=== PATIENT | male | born 1950 | race Caucasian/White ===

== ENCOUNTER 2020-03-01 06:45 | Inpatient (IN) | payer MEDICARE, SELFPAY ==
[2020-03-01] VITALS (14 sets, daily range): BP systolic 103–132; BP diastolic 62–85; PULSE 74–120; RESP 14–38; TEMP 36.4–37.3; O2SAT 89–97; BMI 24.5
--- NOTE | 2020-03-01 07:16 | ECG_ITS ---
Test Reason : SOB Blood Pressure : / mmHG Vent. Rate : 134 BPM Atrial Rate : 138 BPM P-R Int : 000 ms QRS Dur : 098 ms QT Int : 298 ms P-R-T Axes : 000 002 006 degrees QTc Int : 445 ms Atrial fibrillation with rapid ventricular response Left axis deviation Low voltage QRS Abnormal ECG No previous ECGs available Referred By: Isabelle Sandoval Electronically Signed By:UVALDO OTT MD
--- NOTE | 2020-03-01 07:22 | ED.URI ---
HPI - URI/Sore Throat General Chief Complaint: Upper Respiratory Symptoms Stated Complaint: Cough/Sob Time Seen by Provider: 03/01/20 07:15 Source: patient Mode of arrival: ambulatory Limitations: no limitations History of Present Illness MD elicited complaint: cough Onset (ago): day(s) (5) Consistency: constant Severity: moderate Description of mucous: clear Able to tolerate fluids by mouth: Yes Exacerbating factors: deep breaths Relieving factors: nothing Associated symptoms: cough and shortness of breath Treatments prior to arrival: other (cupping) Related Data Home Medications Medication Instructions Recorded Confirmed No Known Home Meds 03/01/20 03/01/20 Allergies Allergy/AdvReac Type Severity Reaction Status Date / Time No Known Allergies Allergy Verified 03/01/20 07:01 Review of Systems Review of Systems: Constitutional : No Fever, No Chills ENT/Mouth : No sore throat, No Rhinorrhea, No Swallowing Difficulty Eyes: No Eye Pain, No Swelling, No Redness Cardiovascular : No Chest Pain, positive SOB, No Orthopnea, no Edema Respiratory : pos Cough, No Sputum, No Wheezing, positive dyspnea Gastrointestinal : No Nausea, No Vomiting, No Diarrhea, No abdominal Pain, No Hematochezia, No Melena Genitourinary : No Dysuria, No Urinary Frequency, No Hematuria Musculoskeletal : No joint pain, No Myalgias Skin : No Skin Lesions, No rash Neuro : No Weakness, No Numbness, No Dizziness, No Headache Psych : No Anxiety/Panic, No Depression Heme/Lymph: No Bruising, No Lymphadenopathy Endocrine : No Polyuria, No Polydipsia All other systems reviewed and are negative [facility] Past Medical History Attestation statement: The following information was validated with the patient. Medical History Appendicitis No known health problems Social History Social History Alcohol intake: current Alcohol intake frequency: holidays/special occasions only Smoking Status: Never smoker Use of substances other than those prescribed or required for medical reasons: No Advance Directives: No Advance Directives Information Provided: No Physical Exam Vital Signs: Vital Signs: Last Vital Signs Temp 999.4 F H 03/01/20 09:59 Pulse 105 H 03/01/20 09:59 Resp 38 H 03/01/20 09:59 BP 115/72 03/01/20 09:59 Pulse Ox 97 03/01/20 09:59 Body Mass Index 24.5 Appearance: Alert. Oriented X3. mild acute distress. Eyes: Pupils equal, round and reactive to light. ENT: Pharynx normal. Neck: Normal inspection. Neck supple. CVS: tachycardic and irregular heart rate and rhythm. Pulses normal. Respiratory: mild respiratory distress. Breath sounds rhonchi and diminished, bronchospastic cough Abdomen: Soft and nontender. Skin: Skin warm and dry. Normal skin color. Normal skin turgor. Extremities: No lower extremity edema. No calf ttp Neuro: Oriented X 3. No motor deficit. No sensory deficit. Course Course Course Narrative: EKG afib with RVR - IV dilt ordered at this time, added on TSH, ddimer patient 2nd dose of dilt now down to 100 ddimer under upper limits of normal CTA held 89% on RA placed on 2L NC will need admission given hypoxia MDM - URI/Sore Throat MDM Narrative Medical decision making narrative: 69 yo male with no known medical problems he is not a smoker here with cough for 5 days he is shallow breathing, denies pain, works on countertops , has irregular rhythm possible afib - will need labs, CXR, EKG, COVID swab, neb treatment - sats 94% on RA, dispo per results and findings. Lab Data Result diagrams: 03/01/20 07:50 03/01/20 07:49 Labs: Lab Results 03/01/20 03/01/20 03/01/20 Range/Units 07:49 07:49 07:49 WBC (4.8-10.8) X10*3/uL RBC (4.60-5.80) X10*6/uL Hgb (14.0-18.0) g/dl Hct (42-52) % MCV (80-98) fL MCH (27.0-33.0) pg MCHC (31.0-36.0) g/dl RDW (11.0-16.0) % Plt Count (160-400) X10*3/uL MPV (9.4-12.4) fL Immature Gran % (Auto) (0.0-0.4) % Neut % (Auto) (45-73) % Lymph % (Auto) (20-40) % Harvey % (Auto) (2-11) % Eos % (Auto) (0-4) % Baso % (Auto) (0-2) % Lymph # (Auto) (1.2-4.9) X10*3/uL Harvey # (Auto) (0.1-1.2) X10*3/uL Eos # (Auto) (0.0-0.4) X10*3/uL Baso # (Auto) (0.0-0.2) X10*3/uL Abs Immat Gran (auto) (0.00-0.03) X10*3/uL Absolute Neuts (auto) (2.0-8.3) X10*3/uL Absolute Nucleated RBC (0.0-0.012) X10*3/uL Nucleated RBC % (auto) (0.0-0.2) /100WBC D-Dimer NG/ML Sodium (135-145) mmol/L Potassium (3.3-5.1) mmol/l Chloride (96-108) mmol/L Carbon Dioxide (22-29) mmol/L Anion Gap (12-20) BUN (9-16) mg/dL Creatinine (0.5-1.4) mg/dL Estim Creat Clear Calc Estimated GFR Random Glucose (60-115) mg/dL Lactic Acid 0.9 (0.5-2.0) mmol/L Calcium (8.4-10.2) mg/dL Ferritin 658 H (20-250) ng/mL Lactate Dehydrogenase 290 H (118-273) U/L Troponin I High Sens (<3.5-35.0) ng/L B-Natriuretic Peptide (<100) pg/mL Procalcitonin 0.06 ng/mL TSH (0.32-4.0) uIU/mL Coronavirus (PCR) Influenza Type A (PCR) Influenza Type B (PCR) RSV RNA Qual (PCR) 03/01/20 03/01/20 03/01/20 Range/Units 07:49 07:49 07:50 WBC (4.8-10.8) X10*3/uL RBC (4.60-5.80) X10*6/uL Hgb (14.0-18.0) g/dl Hct (42-52) % MCV (80-98) fL MCH (27.0-33.0) pg MCHC (31.0-36.0) g/dl RDW (11.0-16.0) % Plt Count (160-400) X10*3/uL MPV (9.4-12.4) fL Immature Gran % (Auto) (0.0-0.4) % Neut % (Auto) (45-73) % Lymph % (Auto) (20-40) % Harvey % (Auto) (2-11) % Eos % (Auto) (0-4) % Baso % (Auto) (0-2) % Lymph # (Auto) (1.2-4.9) X10*3/uL Harvey # (Auto) (0.1-1.2) X10*3/uL Eos # (Auto) (0.0-0.4) X10*3/uL Baso # (Auto) (0.0-0.2) X10*3/uL Abs Immat Gran (auto) (0.00-0.03) X10*3/uL Absolute Neuts (auto) (2.0-8.3) X10*3/uL Absolute Nucleated RBC (0.0-0.012) X10*3/uL Nucleated RBC % (auto) (0.0-0.2) /100WBC D-Dimer 249 NG/ML Sodium 130 L (135-145) mmol/L Potassium 3.7 (3.3-5.1) mmol/l Chloride 94 L (96-108) mmol/L Carbon Dioxide 26 (22-29) mmol/L Anion Gap 14 (12-20) BUN 14 (9-16) mg/dL Creatinine 0.76 (0.5-1.4) mg/dL Estim Creat Clear Calc 85.7 Estimated GFR > 60 Random Glucose 111 (60-115) mg/dL Lactic Acid (0.5-2.0) mmol/L Calcium 8.2 L (8.4-10.2) mg/dL Ferritin (20-250) ng/mL Lactate Dehydrogenase (118-273) U/L Troponin I High Sens (<3.5-35.0) ng/L B-Natriuretic Peptide (<100) pg/mL Procalcitonin ng/mL TSH 1.32 (0.32-4.0) uIU/mL Coronavirus (PCR) Cancelled Influenza Type A (PCR) Cancelled Influenza Type B (PCR) Cancelled RSV RNA Qual (PCR) Cancelled 03/01/20 03/01/20 03/01/20 Range/Units 07:50 07:50 08:39 WBC 5.7 (4.8-10.8) X10*3/uL RBC 5.12 (4.60-5.80) X10*6/uL Hgb 15.4 (14.0-18.0) g/dl Hct 44.3 (42-52) % MCV 86.5 (80-98) fL MCH 30.1 (27.0-33.0) pg MCHC 34.8 (31.0-36.0) g/dl RDW 12.5 (11.0-16.0) % Plt Count 150 L (160-400) X10*3/uL MPV 11.0 (9.4-12.4) fL Immature Gran % (Auto) 0.4 (0.0-0.4) % Neut % (Auto) 74.9 H (45-73) % Lymph % (Auto) 17.0 L (20-40) % Harvey % (Auto) 7.3 (2-11) % Eos % (Auto) 0.2 (0-4) % Baso % (Auto) 0.2 (0-2) % Lymph # (Auto) 1.0 L (1.2-4.9) X10*3/uL Harvey # (Auto) 0.4 (0.1-1.2) X10*3/uL Eos # (Auto) 0.0 (0.0-0.4) X10*3/uL Baso # (Auto) 0.0 (0.0-0.2) X10*3/uL Abs Immat Gran (auto) 0.02 (0.00-0.03) X10*3/uL Absolute Neuts (auto) 4.2 (2.0-8.3) X10*3/uL Absolute Nucleated RBC 0.000 (0.0-0.012) X10*3/uL Nucleated RBC % (auto) 0.0 (0.0-0.2) /100WBC D-Dimer NG/ML Sodium (135-145) mmol/L Potassium (3.3-5.1) mmol/l Chloride (96-108) mmol/L Carbon Dioxide (22-29) mmol/L Anion Gap (12-20) BUN (9-16) mg/dL Creatinine (0.5-1.4) mg/dL Estim Creat Clear Calc Estimated GFR Random Glucose (60-115) mg/dL Lactic Acid (0.5-2.0) mmol/L Calcium (8.4-10.2) mg/dL Ferritin (20-250) ng/mL Lactate Dehydrogenase (118-273) U/L Troponin I High Sens 8.5 (<3.5-35.0) ng/L B-Natriuretic Peptide 115 H (<100) pg/mL Procalcitonin ng/mL TSH (0.32-4.0) uIU/mL Coronavirus (PCR) POSITIVE A Influenza Type A (PCR) NEGATIVE Influenza Type B (PCR) NEGATIVE RSV RNA Qual (PCR) NEGATIVE ECG Data ECG interpretation date: 03/01/20 ECG interpretation time: 07:32 Interpretation: Rate: 130s Rhythm: afib with RVR Lawrence: normal Normal P waves. Normal JHOANA. Normal QRS complex. ST T wave : normal qTC: normal prior studies: new The study has been interpreted contemporaneously by me. . Critical Care Time Critical Care Time Critical Care Time: Yes Total Critical Care Time: 45 Attestation: labs, repeat IV diltiazem, neb treatment, antibiotics. I attest to this time spent taking care of the patient Discharge Plan Discharge Clinical Impression: COVID-19, Hypoxia Atrial fibrillation Qualifiers: Atrial fibrillation type: unspecified Qualified Code(s): I48.91 - Unspecified atrial fibrillation Patient Disposition: Admitted As Inpatient
[2020-03-01] MEDS: Albuterol Sulfate (0.083%) 2.5 MG/3 ML VIAL.NEB INHALE (07:34)
[2020-03-01] MEDS: dilTIAZem HCL 50 MG/10 ML VIAL IVPUSH ×2 (08:04→08:19)
--- NOTE | 2020-03-01 08:06 | PC.NURSE ---
pt resting on ra at 90% placed on 2l fio2 increased to 96%. diltiazem given hr at 143 now at 105
[2020-03-01 08:19] LABS: MANUAL DIFF FLAG NO
--- NOTE | 2020-03-01 08:26 | XR_ITS ---
EXAMINATION: XR CHEST CLINICAL INFORMATION: Dyspnea. COMPARISON: None TECHNIQUE: Frontal view of the chest was obtained. FINDINGS: Mild scattered patchy infiltrates are seen bilaterally. A definitive pleural effusion is not seen. The heart and mediastinal structures are unremarkable. XR/XR chest 1V IMPRESSION: Mild scattered bilateral patchy infiltrates are nonspecific, but suggest an infectious/inflammatory process.
[2020-03-01 08:28] LABS: Basophils Percent Auto 0.2 % (0-2); Eosinophils Percent Auto 0.2 % (0-4); Hematocrit 44.3 % (42-52); Hemoglobin 15.4 g/dl (14.0-18.0); Imm Gran Abs Auto 0.02 X10*3/uL (0.00-0.03); Imm Gran Pct Auto 0.4 % (0.0-0.4); Mean Corpuscular HGB Conc 34.8 g/dl (31.0-36.0); Mean Corpuscular Hemoglobin 30.1 pg (27.0-33.0); Mean Corpuscular Volume 86.5 fL (80-98); Monocytes Absolute Auto 0.4 X10*3/uL (0.1-1.2); Monocytes Percent Auto 7.3 % (2-11); Neutrophils Absolute Auto 4.2 X10*3/uL (2.0-8.3); Neutrophils Percent Auto 74.9 % (45-73); Platelet Count 150 X10*3/uL (160-400); Red Blood Count 5.12 X10*6/uL (4.60-5.80); Red Cell Distribution Width 12.5 % (11.0-16.0); White Blood Count 5.7 X10*3/uL (4.8-10.8)
[2020-03-01 08:38] LABS: D Dimer 249 NG/ML
[2020-03-01 08:48] LABS: Anion Gap 14 (12-20); Blood Urea Nitrogen 14 mg/dL (9-16); Calcium 8.2 mg/dL (8.4-10.2); Carbon Dioxide 26 mmol/L (22-29); Chloride 94 mmol/L (96-108); Creatinine Clr Calc Pharmacy 85.7; Estimated Glomerular Filt Rate > 60; Glucose Random 111 mg/dL (60-115); Lactate Dehydrogenase 290 U/L (118-273); Potassium 3.7 mmol/l (3.3-5.1); Sodium 130 mmol/L (135-145)
[2020-03-01 08:49] LABS: Lactic Acid 0.9 mmol/L (0.5-2.0)
[2020-03-01 08:52] LABS: B Type Natriuretic Peptide 115 pg/mL (<100); Troponin-I High Sensitivity 8.5 ng/L (<3.5-35.0)
[2020-03-01 09:11] LABS: Ferritin 658 ng/mL (20-250); Thyroid Stimulating Hormone 1.32 uIU/mL (0.32-4.0)
[2020-03-01 09:14] LABS: Procalcitonin 0.06 ng/mL
[2020-03-01 09:48] LABS: Influenza A PCR NEGATIVE (Negative); Influenza B PCR NEGATIVE (Negative); Resp Syncy Virus RNA Qual PCR NEGATIVE (Negative); SARS COV2 PCR INHOUSE POSITIVE (Negative)
[2020-03-01] MEDS: Azithromycin 500 MG TABLET PO (10:40)
[2020-03-01] MEDS: dexAMETHasone 6 MG TABLET PO (10:40)
[2020-03-01] MEDS: cefTRIAXone sodium 1 GM in 0.9 % Sodium Chloride 50 ML IV (10:40)
--- NOTE | 2020-03-01 11:15 | PC.NURSE ---
pt seen by hospitalist
--- NOTE | 2020-03-01 11:37 | P.HPHOSP_ITS ---
History of Present Illness Date of Service: 03/01/20 Chief Complaint: not feeling well for 4 days This is a 69-year-old male who denies any chronic medical problems and presents to the hospital with complaints of 4 days of malaise. He reports a nonproductive cough, shortness of breath but denies fevers or chills. he denies any known sick contacts but endorses that he does work on [employer] and has been working up until about 5 days ago when his symptoms started. He denies any chest pain or palpitations. Denies any dizziness. He specifically denies any prior A. Fib / Cardiac history. Upon arrival to the emergency room, patient was noted to be in AFib with rapid ventricular response which responded to IV cardizem but short-lived and increased back to the 130s. His initial O2 saturation was normal but he eventually desaturated to 89 but fortunately this responded to 2L NC. Review of Systems Review of Systems: General - no fevers or chills, malaise HEENT - ear fullness, no sore throat Cardiovascular - no chest pain or palpitations Respiratory - +SOB and cough Abdominal- no abdominal pain, nausea, vomiting, diarrhea Nuero - no numbness, weakness - no urinary symptoms MSK - generalized aches and pains PMFSH Medical History (Updated 03/01/20 @ 16:50 by Larry Andrade MD) Appendicitis No known health problems Pertinent family history: Denies cardiac history. Reports his parents are Surgical History (Updated 03/01/20 @ 16:41 by Larry Andrade MD) History of appendectomy Social History Household Members: Spouse Housing: Condominium Do you presently have visiting nurse or other home services: No Alcohol intake: current Alcohol intake frequency: holidays/special occasions only Smoking Status: Never smoker Use of substances other than those prescribed or required for medical reasons: No Have you been hit, kicked, punched, or otherwise hurt by someone within the past year? If so, by whom?: No Do you feel safe in your current relationship?: No Is there a partner from a previous relationship who is making you feel unsafe now?: No Are you made to feel afraid or neglected: No Spiritual Healthcare Practices: no per patient Jewish Healthcare Practices: no per patient Cultural Healthcare Practices: no per patient Advance Directives: No Advance Directives Information Provided: No Advance Directives on File: No Do you have thoughts of harming others: None Do you have a plan to hurt others: No Plan Recently lost weight without trying: No Meds Allergies Allergy/AdvReac Type Severity Reaction Status Date / Time No Known Allergies Allergy Verified 03/01/20 07:01 Home Medications Medication Instructions Recorded Confirmed Type No Known Home Meds 03/01/20 03/01/20 History Physical Exam Vital Signs and Narrative: Vital Signs: Last Vital Signs Temp 99.4 F H 03/01/20 09:59 Pulse 105 H 03/01/20 09:59 Resp 38 H 03/01/20 09:59 BP 115/72 03/01/20 09:59 Pulse Ox 97 03/01/20 09:59 Body Mass Index 24.5 General - no acute distress, appears comfortable, well developed HEENT - EOMI, PERRL, normal oropharynx Cardiovascular - IRR, rate in the 110s-130s Lungs - dimished without wheezing, RR normal, speaking in full sentences Abdomen - soft, non-tender, no rebound or guarding Extremities - no edema bilaterally Neuro - awake and alert, no focal deficits MSK - normal inspection Results Labs CBC and Chem 7: 03/01/20 07:50 03/01/20 07:49 Labs: Laboratory Results - last 24 hr 03/01/20 03/01/20 03/01/20 07:49 07:49 07:49 MCV MCH MCHC RDW Plt Count MPV Immature Gran % (Auto) Neut % (Auto) Lymph % (Auto) [place] % (Auto) Eos % (Auto) Baso % (Auto) Lymph # (Auto) [place] # (Auto) Eos # (Auto) Baso # (Auto) Abs Immat Gran (auto) Absolute Neuts (auto) Absolute Nucleated RBC Nucleated RBC % (auto) D-Dimer Anion Gap Estim Creat Clear Calc Estimated GFR Random Glucose Lactic Acid 0.9 Calcium Ferritin 658 H Lactate Dehydrogenase 290 H Troponin I High Sens B-Natriuretic Peptide Procalcitonin 0.06 TSH Coronavirus (PCR) Influenza Type A (PCR) Influenza Type B (PCR) RSV RNA Qual (PCR) 03/01/20 03/01/20 03/01/20 07:49 07:49 07:50 MCV MCH MCHC RDW Plt Count MPV Immature Gran % (Auto) Neut % (Auto) Lymph % (Auto) [place] % (Auto) Eos % (Auto) Baso % (Auto) Lymph # (Auto) [place] # (Auto) Eos # (Auto) Baso # (Auto) Abs Immat Gran (auto) Absolute Neuts (auto) Absolute Nucleated RBC Nucleated RBC % (auto) D-Dimer 249 Anion Gap 14 Estim Creat Clear Calc 85.7 Estimated GFR > 60 Random Glucose 111 Lactic Acid Calcium 8.2 L Ferritin Lactate Dehydrogenase Troponin I High Sens B-Natriuretic Peptide Procalcitonin TSH 1.32 Coronavirus (PCR) Cancelled Influenza Type A (PCR) Cancelled Influenza Type B (PCR) Cancelled RSV RNA Qual (PCR) Cancelled 03/01/20 03/01/20 03/01/20 07:50 07:50 08:39 MCV 86.5 MCH 30.1 MCHC 34.8 RDW 12.5 Plt Count 150 L MPV 11.0 Immature Gran % (Auto) 0.4 Neut % (Auto) 74.9 H Lymph % (Auto) 17.0 L [place] % (Auto) 7.3 Eos % (Auto) 0.2 Baso % (Auto) 0.2 Lymph # (Auto) 1.0 L [place] # (Auto) 0.4 Eos # (Auto) 0.0 Baso # (Auto) 0.0 Abs Immat Gran (auto) 0.02 Absolute Neuts (auto) 4.2 Absolute Nucleated RBC 0.000 Nucleated RBC % (auto) 0.0 D-Dimer Anion Gap Estim Creat Clear Calc Estimated GFR Random Glucose Lactic Acid Calcium Ferritin Lactate Dehydrogenase Troponin I High Sens 8.5 B-Natriuretic Peptide 115 H Procalcitonin TSH Coronavirus (PCR) POSITIVE A Influenza Type A (PCR) NEGATIVE Influenza Type B (PCR) NEGATIVE RSV RNA Qual (PCR) NEGATIVE Imaging Radiologist's Impressions: Impressions Chest X-Ray 03/01/20 08:26 IMPRESSION: Mild scattered bilateral patchy infiltrates are nonspecific, but suggest an infectious/inflammatory process. Assessment and Plan (1) COVID-19: Status: Acute This is a 69 yo M with no significant PMH who presents to the hospital with cough, sob and generalized malaise. He is diagnosed with A. Fib RVR and COVID 19. 1. COVID 19 leading to resp failure with hypoxia IV dexamethasone ID consult to see if he qualifies for remdesivir -- may need plasma as well continue O2 2. A. Fib RVR likely due to above cardizem gtt Eliquis 5mg BID (CHADSVASC 1 for age, but given covid and high risk for VTE -- full anticoagulation at this time). Hold off on Echo at this time -- unlikely to change clinical course. 3. HypoNa suspected hypovolumeic do to poor oral intake last few days. HOwever, due to covid hold off on IVF. recheck tomorrow Full Code DVT ppx, Lauro Nominates his , Jailyn as HCP. Called her @ [phone] and updates given.
--- NOTE | 2020-03-01 11:50 | PC.NURSE ---
pt in to ed with cough sob and increased WOB, increased RR with shallow breathing, afib via EKG. pt 89% on RA placed on 4l fio2. labs done IV access obtained
--- NOTE | 2020-03-01 13:04 | PC.NURSE ---
ATTEMPTED TO CALL REPORT TO ICU, DUE TO RAPID RESPONSE AT THIS TIME
[2020-03-01] MEDS: Apixaban 5 MG TABLET PO (14:15)
--- NOTE | 2020-03-01 14:27 | PC.NURSE ---
report given to patel in icu
[2020-03-01] MEDS: 0.9 % Sodium Chloride Flush 3 ML SYRINGE IVFLUSH (14:50)
--- NOTE | 2020-03-01 14:56 | W.PM.IDCN ---
History of Present Illness Data of Consult Service Date: 03/01/20 Requesting physician: Larry Andrade Primary Care Provider: Unknown Physician HPI Reason for consult: hypoxia He presents to hospital with sore throat for a day. He has had dry cough as well for a week . He doesnt report anyone else ill. He initially has oxygen saturation in 96 % on room air and then became tachypneic and subsequently had oxygen saturation of 80% RA by report He is now above 94% on 4 liters and has tachypnea to 30 PMFSH Past Medical History Medical History Appendicitis No known health problems Social History Social History Household Members: Spouse [facility] Do you presently have visiting nurse or other home services: No Alcohol intake: current Alcohol intake frequency: holidays/special occasions only Smoking Status: Never smoker Use of substances other than those prescribed or required for medical reasons: No Have you been hit, kicked, punched, or otherwise hurt by someone within the past year? If so, by whom?: No Do you feel safe in your current relationship?: No Is there a partner from a previous relationship who is making you feel unsafe now?: No Are you made to feel afraid or neglected: No Spiritual Healthcare Practices: no per patient Anabaptism Healthcare Practices: no per patient Cultural Healthcare Practices: no per patient Advance Directives: No Advance Directives Information Provided: No Advance Directives on File: No Do you have thoughts of harming others: None Do you have a plan to hurt others: No Plan Recently lost weight without trying: No Meds Allergies Allergy/AdvReac Type Severity Reaction Status Date / Time No Known Allergies Allergy Verified 03/01/20 07:01 Home Medications Medication Instructions Recorded Confirmed Type No Known Home Meds 03/01/20 03/01/20 History Physical Exam Vital Signs: Vital Signs: Last Vital Signs Temp 98 F 03/01/20 14:00 Pulse 109 H 03/01/20 14:00 Resp 20 03/01/20 13:50 BP 109/63 03/01/20 14:00 Pulse Ox 96 03/01/20 14:00 Body Mass Index 24.5 Const: General: cooperative HENMT: Head: Yes normal to inspection Mouth: Normal oral and palatal mucosa present Throat: Yes posterior oropharynx normal Resp: Effort & Inspection: abnormal respiratory effort and abnormal respiratory pattern Cardio: Rate: regular rate and tachycardic GI: Inspection: Yes normal to inspection Auscultation: normal bowel sounds Skin: General skin exam: no rashes or lesions noted Extrem: General: Yes normal to inspection Assessment and Plan (1) COVID-19: Problem details: He has increasing hypoxia He has normal creatinine and doesnt have LFTs ordered There is concern over developing COVID pneumonia He has recent onset of symptoms,5 days Status: Acute Oxygen support Dexamethasone 6 mg IV daily Consider Remdesivir ,checking LFTs Consider convalescent plasma if not responding Results Labs CBC & Chem 7: 03/01/20 07:50 03/01/20 07:49 Labs: Short CBC 03/01/20 Range/Units 07:50 WBC 5.7 (4.8-10.8) X10*3/uL Hgb 15.4 (14.0-18.0) g/dl Hct 44.3 (42-52) % Plt Count 150 L (160-400) X10*3/uL BMP 03/01/20 07:49 Sodium 130 L Potassium 3.7 Chloride 94 L Carbon Dioxide 26 BUN 14 Creatinine 0.76 Calcium 8.2 L
[2020-03-01] MEDS: dilTIAZem HCL 125 MG in 0.9 % Sodium Chloride 100 ML IVCONT (15:54)
[2020-03-01 16:03] LABS: Alanine Aminotransferase 18 U/L (0-40); Albumin Level 3.8 g/dL (3.5-5.0); Alkaline Phosphatase 112 U/L (39-117); Aspartate Amino Transferase 23 U/L (5-37); Bilirubin Direct 0.4 mg/dL (0.0-0.5); Bilirubin Total 0.9 mg/dL (0.0-1.0); Total Protein 6.6 g/dL (6.5-8.0)
[2020-03-01] MEDS: Remdesivir 200 MG in 0.9 % Sodium Chloride 210 ML 125 MG IV (20:54)
[2020-03-02] VITALS (10 sets, daily range): BP systolic 104–129; BP diastolic 60–80; PULSE 65–98; RESP 17–20; TEMP 36.2–36.9; O2SAT 91–98
[2020-03-02] MEDS: 0.9 % Sodium Chloride Flush 3 ML SYRINGE IVFLUSH ×2 (01:03→08:42)
[2020-03-02 06:58] LABS: Hematocrit 46.3 % (42-52); Hemoglobin 15.6 g/dl (14.0-18.0); Mean Corpuscular HGB Conc 33.7 g/dl (31.0-36.0); Mean Corpuscular Hemoglobin 29.3 pg (27.0-33.0); Mean Corpuscular Volume 86.9 fL (80-98); Mean Platelet Volume 11.2 fL (9.4-12.4); Platelet Count 180 X10*3/uL (160-400); Red Blood Count 5.33 X10*6/uL (4.60-5.80); Red Cell Distribution Width 12.5 % (11.0-16.0); White Blood Count 8.9 X10*3/uL (4.8-10.8)
[2020-03-02 07:14] LABS: D Dimer 223 NG/ML
[2020-03-02 07:39] LABS: Anion Gap 14 (12-20); Blood Urea Nitrogen 15 mg/dL (9-16); Calcium 8.4 mg/dL (8.4-10.2); Carbon Dioxide 30 mmol/L (22-29); Chloride 98 mmol/L (96-108); Creatinine Clr Calc Pharmacy 94.4; Estimated Glomerular Filt Rate > 60; Glucose Random 111 mg/dL (60-115); Potassium 4.8 mmol/l (3.3-5.1); Sodium 137 mmol/L (135-145)
[2020-03-02 07:40] LABS: Procalcitonin 0.06 ng/mL
[2020-03-02] MEDS: dexAMETHasone sod phosphate 4 MG/ML VIAL 6 MG IVPUSH (08:42)
[2020-03-02] MEDS: Apixaban 5 MG TABLET PO ×2 (08:42→21:21)
--- NOTE | 2020-03-02 10:15 | MHC.CM.PN ---
IMM 03/02/20 MALE DX COVID+ AFIB RVR. HE LIVES WITH HIS . HE IS INDEPENDENT ALL FUNCTIONAL MOBILITY AND WORKS. He takes no meds. He does not have a PCP. His stated that she would schedule an appt with a new PCP today. She will provide MD contact info, this afternoon. She verbalized understanding of all instruction R/T the need for a PCP. CM will follow.
[2020-03-02] MEDS: dilTIAZem HCL 30 MG TABLET PO ×2 (16:43→21:21)
[2020-03-02] MEDS: dilTIAZem HCL 125 MG in 0.9 % Sodium Chloride 100 ML IVCONT (16:43)
--- NOTE | 2020-03-02 17:22 | P.PNIM_ITS ---
Subjective Subjective Date of Service: 03/02/20 Interval History: seen and examined this AM reports feeling better less sob and less cough no cp or palp General - no fevers or chills Cardiovascular - no chest pain, no palp Respiratory - +sob/cough Abdominal- no abdominal pain, nausea, vomiting, diarrhea Physical Exam Vital Signs: Vital Signs: Last Vital Signs Temp 97.2 F 03/02/20 16:00 Pulse 95 03/02/20 16:43 Resp 18 03/02/20 16:00 BP 119/72 03/02/20 16:43 Pulse Ox 94 03/02/20 16:00 Body Mass Index 24.5 General - no acute distress, appears comfortable Cardiovascular - IRR Lungs - normal respiratory effort, clear to auscultation bilaterally, no wheezing Abdomen - soft, nontender, no rebound or guarding Extremities - no edema bilaterally Neuro - awake and alert, no focal deficits Objective Data Current Medications Generic Name Dose Route Start Last Admin Trade Name Freq PRN Reason Stop Dose Admin Albuterol Sulfate 2 puff 03/01/20 11:21 Albuterol Sulfate 90 Mcg 8 Gm Inhaler INHALE RQ6H PRN Shortness of Breath Apixaban 5 mg 03/01/20 13:45 03/02/20 08:42 Apixaban 5 Mg Tablet PO 5 mg BID FIDELIA Administration Dexamethasone Sodium Phosphate 6 mg 03/02/20 09:00 03/02/20 08:42 Dexamethasone Sod Phosphate 4 Mg/Ml Vial IVPUSH 03/11/20 09:01 6 mg DAILY FIDELIA Administration Diltiazem HCl 30 mg 03/02/20 17:00 03/02/20 16:43 Diltiazem Hcl 30 Mg Tablet PO 30 mg QID FIDELIA Administration Protocol Diltiazem HCl 125 mg/ Sodium 125 mls @ 0 mls/hr 03/01/20 15:30 03/02/20 16:43 Chloride IVCONT 5 mg/hr .Q0M FIDELIA 5 mls/hr Administration Protocol Per Protocol Remdesivir 200 mg/ Sodium 250 mls @ 125 mls/hr 03/01/20 20:00 03/01/20 23:21 Chloride IV Infused ONCE FIDELIA Infusion Remdesivir 100 mg/ Sodium 250 mls @ 125 mls/hr 03/02/20 20:00 Chloride IV Q24H FIDELIA Sodium Chloride 3 ml 03/01/20 16:00 03/02/20 16:07 0.9 % Sodium Chloride Flush 3 Ml Syringe IVFLUSH Not Given QSHIFT FIDELIA Labs CBC & Chem 7: 03/02/20 05:57 03/02/20 05:57 Microbiology Microbiology Results: Microbiology 03/01/20 07:51 Blood - Venous Blood Culture - Preliminary No growth after 24 hours. 03/01/20 07:48 Blood - Venous Blood Culture - Preliminary No growth after 24 hours. Assessment and Plan (1) COVID-19: Status: Acute Assessment and Plan: This is a 69 yo M with no significant PMH who presents to the hospital with cough, sob and generalized malaise. He is diagnosed with A. Fib RVR and COVID 19. 1. COVID 19 leading to resp failure with hypoxia IV dexamethasone day 05/24 ID input appreciated -- started on remdesivir day 05/19 2. A. 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 HypoNa resolved on its own Full Code DVT ppx, Lauro Called and updated his Jailyn @ [phone]
[2020-03-02] MEDS: Remdesivir 100 MG in 0.9 % Sodium Chloride 230 ML 125 MG IV (21:21)
[2020-03-03] VITALS (13 sets, daily range): BP systolic 98–129; BP diastolic 57–76; PULSE 76–97; RESP 17–19; TEMP 36.2–37.2; O2SAT 91–97
[2020-03-03] MEDS: 0.9 % Sodium Chloride Flush 3 ML SYRINGE IVFLUSH ×4 (00:14→19:54)
[2020-03-03] MEDS: dexAMETHasone sod phosphate 4 MG/ML VIAL 6 MG IVPUSH (08:32)
[2020-03-03] MEDS: dilTIAZem HCL 30 MG TABLET PO ×4 (08:32→19:51)
[2020-03-03] MEDS: Apixaban 5 MG TABLET PO ×2 (08:32→19:51)
--- NOTE | 2020-03-03 09:05 | MHC.CM.PN ---
Male 69 DX COVID +, AFIB+RVR. DP home no services F/U with New PCP. Patient provided new PCP info. DR Asa Tejada will be the Pts PCP. Case management notified. EMR updated. Family will provide transportation at [place]. CM will follow.
--- NOTE | 2020-03-03 11:09 | MHC.CM.PN ---
CM note. Patient has been started on Remdesivir. His has been notified. He will receive x5 days. informed anticipate DC > 5 days. CM will follow.
--- NOTE | 2020-03-03 13:56 | PC.NURSE ---
pt 02 sat 97-97% on 2l NC. Pt has no c/o sob or trouble breathing. Lowered o2 to 1 L NC, sat 93-94%. Will continue to monitor.
--- NOTE | 2020-03-03 16:31 | PC.NURSE ---
Pt off cardizem gtt over 24 hrs, 30mg PO cardizem given q6hrs. HR remain afib- 75-90's. Pt still requiring minimal oxygen, 2L NC, no c/o sob, states he is feeling good.
--- NOTE | 2020-03-03 18:12 | HO.PM.IMPN ---
Subjective Subjective Date of Service: 03/02/20 Interval History: seen and examined this AM reports feeling better less sob and less cough no cp or palp ROS General - no fevers or chills Cardiovascular - no chest pain, no palp Respiratory - +sob/cough Abdominal- no abdominal pain, nausea, vomiting, diarrhea Physical Exam Vital Signs: General - no acute distress, appears comfortable Cardiovascular - IRR Lungs - normal respiratory effort, clear to auscultation bilaterally, no wheezing Abdomen - soft, nontender, no rebound or guarding Extremities - no edema bilaterally Neuro - awake and alert, no focal deficits Objective Data Current Medications Generic Name Dose Route Start Last Admin Trade Name Freq PRN Reason Stop Dose Admin Albuterol Sulfate 2 puff 03/01/20 11:21 Albuterol Sulfate 90 Mcg 8 Gm Inhaler INHALE RQ6H PRN Shortness of Breath Apixaban 5 mg 03/01/20 13:45 03/03/20 08:32 Apixaban 5 Mg Tablet PO 5 mg BID FIDELIA Administration Dexamethasone Sodium Phosphate 6 mg 03/02/20 09:00 03/03/20 08:32 Dexamethasone Sod Phosphate 4 Mg/Ml Vial IVPUSH 03/11/20 09:01 6 mg DAILY FIDELIA Administration Diltiazem HCl 30 mg 03/02/20 17:00 03/03/20 17:50 Diltiazem Hcl 30 Mg Tablet PO 30 mg QID FIDELIA Administration Protocol Diltiazem HCl 125 mg/ Sodium 125 mls @ 0 mls/hr 03/01/20 15:30 03/02/20 17:54 Chloride IVCONT 0 mg/hr .Q0M FIDELIA 0 mls/hr Titration Protocol Per Protocol Remdesivir 100 mg/ Sodium 250 mls @ 125 mls/hr 03/02/20 20:00 03/02/20 23:22 Chloride IV Infused Q24H FIDELIA Infusion Sodium Chloride 3 ml 03/01/20 16:00 03/03/20 17:51 0.9 % Sodium Chloride Flush 3 Ml Syringe IVFLUSH 3 ml QSHIFT FIDELIA Administration Labs CBC & Chem 7: 03/02/20 05:57 03/02/20 05:57 Microbiology Microbiology Results: Microbiology 03/01/20 07:48 Blood - Venous Blood Culture - Preliminary No growth after 48 hours. 03/01/20 07:51 Blood - Venous Blood Culture - Preliminary No growth after 48 hours. Assessment and Plan (1) COVID-19: Status: Acute Assessment and Plan: This is a 69 yo M with no significant PMH who presents to the hospital with cough, sob and generalized malaise. He is diagnosed with A. Fib RVR and COVID 19. 1. COVID 19 leading to resp failure with hypoxia o2 requirements improving -- down to 2L now IV dexamethasone day 06/21 ID input appreciated -- remdesivir day 06/16 2. A. Fib RVR po short acting cardizem -- change to long acting tomorrow eliquis 5mg bid outpatient echo 3. HypoNa resolved on its own Full Code DVT ppx, Eliquis Called and updated his Jailyn @ [phone]
--- NOTE | 2020-03-03 18:32 | PC.NURSE ---
}Took pt off o2, satting 91%, no c.o sob. Called pt's daughter Adrianna and updated on treatment plan and explained medication and educated on importance of medications.
[2020-03-03] MEDS: Remdesivir 100 MG in 0.9 % Sodium Chloride 230 ML 125 MG IV (19:50)
[2020-03-04 03:05] VITALS: BP 97/58; PULSE 66; RESP 19; TEMP 35.7; O2SAT 96
[2020-03-04 08:00] VITALS: BP 124/79; PULSE 98; RESP 18; TEMP 36.8; O2SAT 90
[2020-03-04] MEDS: Apixaban 5 MG TABLET PO (08:02)
[2020-03-04] MEDS: dexAMETHasone sod phosphate 4 MG/ML VIAL 6 MG IVPUSH (08:02)
[2020-03-04] MEDS: 0.9 % Sodium Chloride Flush 3 ML SYRINGE IVFLUSH (08:02)
--- NOTE | 2020-03-04 11:02 | PM.DS ---
DS: Providers Provider Date of admission: 03/01/20 11:20 Primary care physician: Unknown Physician Consults: 03/01/20 11:36 Consult to Infectious Diseases Routine Consulting Provider: Maricruz Moya Reason for consultation: covid 19, hypoxia DS: Diagnosis Discharge Diagnosis (1) COVID-19: Status: Acute (2) Hypoxia: Status: Acute (3) Atrial fibrillation: Status: Acute DS: Medications Discharge Medications Home Medications: Previous Rx's Medication Instructions Recorded aspirin [Adult Low Dose Aspirin] 81 mg PO DAILY #30 tab 03/04/20 diltiazem HCl [Cardizem CD] 120 mg PO DAILY #30 cap 03/04/20 DS: Summary Hospital Course Hospital Course: Patient was started on supplemental oxygen and dexamethasone for his COVID-19. Infectious Disease was consulted and remdesivir was initiated. Over the course of 2 days, the patient's oxygen requirements had significant improvement and he was able to be weaned to room air. Patient requested to discontinue remdesivir as well as dexamethasone on 03/04/2020. A phone call was held with patient and patient's daughter to ensure that patient fully understood the decision he was making. They were explained that he may have worsening of his COVID and hypoxia if he were to discontinue this, but patient reported that he felt better and did not feel that he needed this. Patient also presented in A. Fib with RVR which was initially treated with IV cardizem gtt and this was subsequently transitioned to oral cardizem. He was initated on Eliquis 5mg BID (had agreed to this after he discussed it with his ). Although his CHADSVASC score was only 1 (for age), anticoagulation was initiated due to his concurrent COVID 19 and its propensity for VTE. Again on the day of discharge, patient requested discontinuation of Eliquis (despite explaining to him that he may be at increased VTE / stroke risk without this). He was offered cardiology consultation and further testing in the hospital but he declined. This issue was also discussed with the daughter/patient via telephone conference. Lastly, on the day of discharge, the patient was urged to stay one more day in the hospital for monitoring purposes, but as he was feeling better -- he opted to be discharged. Again, this last part was also discussed with the daughter/patient via telephone. Patient has been informed to return to the hospital should his symptoms worsen. Time Spent with Patient Time attestation: Total time spent providing and/or coordinating discharge services: Physical Exam Vital Signs: Vital Signs: Last Vital Signs Temp 98.3 F 03/04/20 08:00 Pulse 98 03/04/20 08:00 Resp 18 03/04/20 08:00 BP 124/79 03/04/20 08:00 Pulse Ox 90 L 03/04/20 08:00 Body Mass Index 24.5 General - no acute distress, appears comfortable Cardiovascular - IRR Lungs - normal respiratory effort, clear to auscultation bilaterally, no wheezing Abdomen - soft, nontender, no rebound or guarding Extremities - no edema bilaterally Neuro - awake and alert, no focal deficits, AAOx3; DS: Data Data Completed and Pending Labs on day of discharge: Laboratory Last Values WBC 8.9 X10*3/uL (4.8-10.8) 03/02/20 05:57 RBC 5.33 X10*6/uL (4.60-5.80) 03/02/20 05:57 Hgb 15.6 g/dl (14.0-18.0) 03/02/20 05:57 Hct 46.3 % (42-52) 03/02/20 05:57 MCV 86.9 fL (80-98) 03/02/20 05:57 MCH 29.3 pg (27.0-33.0) 03/02/20 05:57 MCHC 33.7 g/dl (31.0-36.0) 03/02/20 05:57 RDW 12.5 % (11.0-16.0) 03/02/20 05:57 Plt Count 180 X10*3/uL (160-400) 03/02/20 05:57 MPV 11.2 fL (9.4-12.4) 03/02/20 05:57 Immature Gran % (Auto) 0.4 % (0.0-0.4) 03/01/20 07:50 Neut % (Auto) 74.9 % (45-73) H 03/01/20 07:50 Lymph % (Auto) 17.0 % (20-40) L 03/01/20 07:50 [place] % (Auto) 7.3 % (2-11) 03/01/20 07:50 Eos % (Auto) 0.2 % (0-4) 03/01/20 07:50 Baso % (Auto) 0.2 % (0-2) 03/01/20 07:50 Lymph # (Auto) 1.0 X10*3/uL (1.2-4.9) L 03/01/20 07:50 [place] # (Auto) 0.4 X10*3/uL (0.1-1.2) 03/01/20 07:50 Eos # (Auto) 0.0 X10*3/uL (0.0-0.4) 03/01/20 07:50 Baso # (Auto) 0.0 X10*3/uL (0.0-0.2) 03/01/20 07:50 Abs Immat Gran (auto) 0.02 X10*3/uL (0.00-0.03) 03/01/20 07:50 Absolute Neuts (auto) 4.2 X10*3/uL (2.0-8.3) 03/01/20 07:50 Absolute Nucleated RBC 0.000 X10*3/uL (0.0-0.012) 03/02/20 05:57 Nucleated RBC % (auto) 0.0 /100WBC (0.0-0.2) 03/02/20 05:57 D-Dimer 223 NG/ML 03/02/20 05:57 Sodium 137 mmol/L (135-145) 03/02/20 05:57 Potassium 4.8 mmol/l (3.3-5.1) D 03/02/20 05:57 Chloride 98 mmol/L (96-108) 03/02/20 05:57 Carbon Dioxide 30 mmol/L (22-29) H 03/02/20 05:57 Anion Gap 14 (12-20) 03/02/20 05:57 BUN 15 mg/dL (9-16) 03/02/20 05:57 Creatinine 0.69 mg/dL (0.5-1.4) 03/02/20 05:57 Estim Creat Clear Calc 94.4 03/02/20 05:57 Estimated GFR > 60 03/02/20 05:57 Random Glucose 111 mg/dL (60-115) 03/02/20 05:57 Lactic Acid 0.9 mmol/L (0.5-2.0) 03/01/20 07:49 Calcium 8.4 mg/dL (8.4-10.2) 03/02/20 05:57 Ferritin 658 ng/mL (20-250) H 03/01/20 07:49 Total Bilirubin 0.9 mg/dL (0.0-1.0) 03/01/20 15:10 Direct Bilirubin 0.4 mg/dL (0.0-0.5) 03/01/20 15:10 AST 23 U/L (5-37) 03/01/20 15:10 ALT 18 U/L (0-40) 03/01/20 15:10 Alkaline Phosphatase 112 U/L (39-117) 03/01/20 15:10 Lactate Dehydrogenase 290 U/L (118-273) H 03/01/20 07:49 Troponin I High Sens 8.5 ng/L (<3.5-35.0) 03/01/20 07:50 B-Natriuretic Peptide 115 pg/mL (<100) H 03/01/20 07:50 Total Protein 6.6 g/dL (6.5-8.0) 03/01/20 15:10 Albumin 3.8 g/dL (3.5-5.0) 03/01/20 15:10 Procalcitonin 0.06 ng/mL 03/02/20 05:57 TSH 1.32 uIU/mL (0.32-4.0) 03/01/20 07:49 Coronavirus (PCR) POSITIVE (Negative) A 03/01/20 08:39 Influenza Type A (PCR) NEGATIVE (Negative) 03/01/20 08:39 Influenza Type B (PCR) NEGATIVE (Negative) 03/01/20 08:39 RSV RNA Qual (PCR) NEGATIVE (Negative) 03/01/20 08:39 Preliminary micro results at discharge 03/01/20 07:48 Blood Culture - Preliminary Blood - Venous No growth after 48 hours. 03/01/20 07:51 Blood Culture - Preliminary Blood - Venous No growth after 48 hours. Discharge Plan Discharge Patient Disposition: Home, Self-Care Referrals: Sachin Rivera MD [Physician] - 4 Weeks Physician,Unknown [Primary Care Provider] - Discharge Medications: New diltiazem HCl [Cardizem CD] 120 mg Capsule,Extended Release 24hr 120 mg PO DAILY Qty: 30 RF: 0 aspirin [Adult Low Dose Aspirin] 81 mg tablet,delayed release (DR/EC) 81 mg PO DAILY Qty: 30 RF: 0 Discharge Orders: Discharge Order (Routine); Ordered 03/04/20 Ordered By: Larry Andrade Diet: advance to usual diet Activity on Discharge: As tolerated Visit Report Forms: Patient Portal Discharge page Care Plan Goals: To recover from COVID 19 Health Concerns: COVID 19 Atrial fibrillation Plan of Treatment: COVID 19 - if you have trouble breathing, fevers, cough please return to the hospital Atrial Fibrillation - Take aspirin every day. Take Cardizem every day. Follow up with cardiology referral.
--- NOTE | 2020-03-04 11:11 | MHC.CM.PN ---
Pt being discharged today, home with no services. Pts will transport
[2020-03-04 12:11] VITALS: BP 124/79; PULSE 112
[2020-03-04] MEDS: Aspirin 81 MG TAB.CHEW PO (12:11)
[2020-03-04] MEDS: dilTIAZem HCL CD 120 MG CAP.ER.DEG PO (12:11)
== END 2020-03-04 13:13 | disposition home or self-care (01) | DRG 177 ==
LOC: HO.ED 10:14 → HO.ICU 12:54 → HO.IMC 23:14
PROVIDERS: Internal Medicine; Admitting Provider Family Medicine; Emergency Provider Emergency Medicine; PCP Nurse Practitioner Family; Visit Provider Family Medicine
DX: U07.1 COVID-19 (principal); J96.01 Acute respiratory failure with hypoxia; E87.1 Hypo-osmolality and hyponatremia; I48.91 Unspecified atrial fibrillation; Z79.82 Long term (current) use of aspirin; Z79.899 Other long term (current) drug therapy
CPT/HCPCS: 0241U; 11104; 36415; 71045; 80048; 80076; 82728; 83605; 83615; 83880; 84145; 84443; 84484; 85025; 85027; 85379; 87040; 93005; 96365; 96375; 96376; 99285; 99291; J0696; J1100; J3490; J8540

== ENCOUNTER 2022-08-11 08:42 | Emergency (ER) | payer MEDICARE, SELFPAY ==
--- NOTE | ~2022-08-11 | XR_ITS ---
EXAMINATION: XR CHEST CLINICAL INFORMATION: Cough COMPARISON: Chest x-ray 03/01/2020 TECHNIQUE: 2 views of the chest were obtained. FINDINGS: Cardiac silhouette is normal in size. The lungs are adequately aerated. Subtle bibasilar opacities suggesting atelectasis. No lobar consolidation. No pleural effusion or pneumothorax. Degenerative changes of the spine. XR/XR chest 2V IMPRESSION: Suspected bibasilar atelectasis. No lobar consolidation.
--- NOTE | 2022-08-11 08:55 | ECG_ITS ---
Test Reason : WEAKNESS Blood Pressure : / mmHG Vent. Rate : 127 BPM Atrial Rate : 000 BPM P-R Int : 000 ms QRS Dur : 092 ms QT Int : 314 ms P-R-T Axes : 000 -21 036 degrees QTc Int : 456 ms Atrial fibrillation with rapid ventricular response Inferior infarct , age undetermined Cannot rule out Anterior infarct , age undetermined Abnormal ECG When compared with ECG of 01-MAR-2020 07:29, Inferior infarct is now Present Nonspecific T wave abnormality now evident in Anterior leads Referred By: Rosalinda Rosario Electronically Signed By:LAURA HOLLINGSWORTH MD
[2022-08-11 09:08] VITALS: BP 138/78; PULSE 125; RESP 16; TEMP 36.3; O2SAT 96; BMI 27.3
--- NOTE | 2022-08-11 09:16 | ED.GENADULT ---
HPI - General Adult General Chief complaint: General Medical Stated complaint: cough/ weakness Time Seen by Provider: 08/11/22 09:15 Source: patient, family (patient's ) and engineer automated equipment ([place] Islander) Mode of arrival: ambulatory Limitations: language barrier (patient speaks [place] Islander) History of Present Illness HPI narrative: Patient is a 72 year old assigned male at with a history of heart disease presenting to the emergency department today with a week of feeling generally unwell with weakness. Patient states that a month ago he had 2 stents placed at [facility]. Patient states that over the last week he has felt generally unwell. Patient denies any dizziness, lightheadedness, abdominal pain, nausea, vomiting, fever, chills, blurry vision, double vision, loss of vision, chest pain, difficulty breathing, shortness of breath, back pain, night sweats, pain with urination, increased urinary frequency, increased urinary urgency, blood in his urine or stool, syncope or a near syncopal episode, recent trauma or falls, bowel incontinence, bladder incontinence, bowel retention, bladder retention, or any other complaints at this time. Onset (ago): week(s) (1) Relieving factors: none Exacerbating factors: none Associated symptoms: denies other symptoms Treatments prior to arrival: none Related Data Home Medications Medication Instructions Recorded Confirmed apixaban 5 mg tablet (Eliquis) 5 mg PO BID 08/11/22 08/11/22 atorvastatin 80 mg tablet 80 mg PO DAILY 08/11/22 08/11/22 clopidogrel 75 mg tablet 75 mg PO DAILY 08/11/22 08/11/22 diltiazem HCl 120 mg 120 mg PO DAILY 08/11/22 08/11/22 capsule,extended release 24 hr, controlled (DILT-XR) metoprolol succinate 50 mg 50 mg PO DAILY 08/11/22 08/11/22 tablet,extended release 24 hr Allergies Allergy/AdvReac Type Severity Reaction Status Date / Time No Known Allergies Allergy Verified 08/11/22 09:08 Review of Systems Constitutional: Constitutional: Reports no additional constitutional complaints, Denies chills, Denies fever(s) and Denies night sweats Eyes: Eyes: Reports no additional eye complaints, Denies blurry vision, Denies change in vision, Denies diplopia, Denies eye discharge, Denies loss of vision and Denies eye pain ENT: Denies dizziness Cardiovascular: Cardiovascular: Reports no additional cardiovascular complaints, Denies chest pain, Denies lightheadedness, Denies Loss of Consciousness and Denies dyspnea Respiratory: Respiratory: Reports no additional respiratory complaints and Denies dyspnea Gastrointestinal: Gastrointestinal: Reports no additional gastrointestinal complaints, Denies abdominal pain, Denies melena, Denies hematochezia, Denies change in bowel habits and Denies change in stool character Genitourinary: Genitourinary: Reports no additional male genitourinary complaints, Denies hematuria, Denies oliguria, Denies difficulty urinating, Denies dysuria, Denies urinary frequency, Denies urinary hesitancy, Denies urinary incontinence and Denies urinary urgency Musculoskeletal: Musculoskeletal: Reports no additional musculoskeletal complaints, Denies numbness and Denies tingling Neurologic: Denies dizziness, Denies loss of vision, Denies numbness and Denies tingling Psychiatric: Psychiatric: Reports no additional psychiatric complaints Endocrine: Endocrine: Reports no additional endocrine complaints Hematologic/Lymphatic: Hematologic/Lymphatic: Reports no additional hematologic/lymphatic complaints Allergic/Immunologic: Allergic/Immunologic: Reports no additional allergic/immunologic complaints [facility] Past Medical History Attestation statement: The following information was validated with the patient. (all information validated with the patient's ) Source: old records reviewed, obtained from family (patient's ) and nursing notes reviewed Medical History Appendicitis No known health problems Surgical History History of appendectomy Social History Social History Household Members: Spouse Housing: Condominium Do you presently have visiting nurse or other home services: No Alcohol intake: never Smoked in Last 30 Days: No Use of substances other than those prescribed or required for medical reasons: No Advance Directives: No Advance Directives Information Provided: Yes service: No Current occupational status: employed Physical Exam ED Vital Signs: Vital Signs - 24 hr 08/11/22 09:08 08/11/22 10:29 08/11/22 11:57 Temperature 97.4 F 97.8 F Pulse Rate 125 H 95 77 Respiratory Rate 16 22 H Blood Pressure 138/78 134/71 117/75 Pulse Oximetry 96 95 Oxygen Delivery Method Room Air Room Air BMI result Body Mass Index 27.3 Const General: cooperative, no acute distress, alert and awake Nutritional Appearance: well nourished Orientation/consciousness: patient oriented x3 Limitations: no limitations HENMT Head: Yes normal to inspection and Yes atraumatic Ears: hearing grossly normal bilaterally and external ears normal General nose exam: Normal external nose present, no nasal discharge noted and no epistaxis Face and sinus: Yes normal facial exam, No abrasion and No laceration Mouth: Normal oral and palatal mucosa present, no drooling and no muffled voice Eyes General: appearance normal, both eyes and all related structures Periorbital: periorbital findings normal Eyelids: Yes eyelids normal Conjunctivae: conjunctivae normal Pupils: Equal, round and reactive pupils present EOM: EOMs intact bilaterally Neck Neck: Yes normal visual inspection, Yes full ROM and Yes no lymphadenopathy Chest Chest palpation & inspection: normal inspection of the chest Resp Effort & Inspection: normal respiratory effort and able to speak in complete sentences Auscultation: clear to auscultation bilaterally Cardio Rate: tachycardic Rhythm: abnormal rhythm irregularly irregular GI Inspection: Yes normal to inspection Neuro General: patient oriented x3 and moves all extremities Cranial nerves: Yes Equal, round and reactive pupils present Cognition (Neuro): normal cognition Motor exam (neuro): 5/5 motor strength present throughout Sensory Exam: Normal double simultaneous stimulation for sensation Coordination: [id number] test normal Extrem General: Yes normal to inspection, Yes full ROM and Yes capillary refill normal Psych Appearance: grossly normal Mental Status: mental status grossly normal Affect: normal affect Attitude: cooperative Thought process: Normal thought process present Thought content: Normal thought content present Insight: Good insight present (Psych) Medications Administered Discontinued Medications Generic Name Dose Route Start Last Admin Trade Name Freq PRN Reason Stop Dose Admin Diltiazem HCl 120 mg 08/11/22 09:30 08/11/22 10:29 Diltiazem Hcl 60 Mg Tablet PO 08/11/22 09:31 120 mg ONCE ONE Administration Protocol Sodium Chloride 1,000 mls @ 999 mls/hr 08/11/22 09:30 08/11/22 09:57 Ns IV 08/11/22 10:30 999 mls/hr .Q1H1M FIDELIA Administration Medical Decision Making Medical Decision Making MDM Narrative: Patient is a 72 year old assigned male at with a history of cardiac disease, including atrial fibrillation on Eliquis, presenting to the emergency department today with generalized weakness. Patient's physical exam showed atrial fib with RVR but was otherwise unremarkable. Patient's blood work was unremarkable. Patient's initial EKG showed atrial fib with RVR. Patient's chest x-ray showed no acute process. I consulted cardiology who recommended giving the patient an additional dose of his diltiazem for a total of 240mg of diltiazem today. After patient received the medication, his rate was controlled. Cards agreed patient was appropriate for discharge and he should follow up with his specimen collector at [facility]. I explained my physical exam findings as well as all test results to the patient and the patient's . I answered all questions asked by the patient and the patient's . I stressed the importance of the patient taking his medication as prescribed. I stressed the importance of the patient following up with his primary care provider. I stressed the importance of the patient returning to the emergency department immediately if his symptoms were to worsen or if he were to develop any dizziness, shortness of breath, difficulty breathing, chest pain, blurry vision, loss of vision, nausea, vomiting, abdominal pain, fever, chills, back pain, or any other complaints. Patient and the patient's verbalized agreement and understanding with this treatment plan and discharge. Differential Diagnosis Differential Diagnoses: The differential diagnosis associated with the presentation includes atrial fibrillation Consult Healthcare Provider Management of the patient was discussed with: [employer] Manager (spoke to cardiology as noted in the MDM portion of this chart) Lab Data [facility] Lab Attestation statement: I reviewed the patient's lab results. 08/11/22 09:15 08/11/22 09:14 Labs: Lab Results 08/11/22 08/11/22 08/11/22 Range/Units 09:14 09:14 09:15 WBC 8.0 (4.8-10.8) X10*3/uL RBC 5.34 (4.60-5.80) X10*6/uL Hgb 16.0 (14.0-18.0) g/dl Hct 46.8 (42.0-52.0) % MCV 87.6 (80.0-98.0) fL MCH 30.0 (27.0-33.0) pg MCHC 34.2 (31.0-36.0) g/dl RDW 13.2 (11.0-16.0) % Plt Count 217 (160-400) X10*3/uL MPV 9.3 L (9.4-12.4) fL Immature Gran % (Auto) 0.5 H (0.0-0.4) % Neut % (Auto) 73.6 H (45-73) % Lymph % (Auto) 15.7 L (20-40) % [place] % (Auto) 8.9 (2-11) % Eos % (Auto) 0.9 (0-4) % Baso % (Auto) 0.4 (0-2) % Lymph # (Auto) 1.3 (1.2-4.9) X10*3/uL [place] # (Auto) 0.7 (0.1-1.2) X10*3/uL Eos # (Auto) 0.1 (0.0-0.4) X10*3/uL Baso # (Auto) 0.0 (0.0-0.2) X10*3/uL Abs Immat Gran (auto) 0.04 H (0.00-0.03) X10*3/uL Absolute Neuts (auto) 5.9 (2.0-8.3) x10*3/uL Absolute Nucleated RBC 0.000 (0.0-0.012) X10*3/uL Nucleated RBC % (auto) 0.0 (0.0-0.2) /100WBC PT (10.0-13.1) SEC INR (0.9-1.1) APTT (26.0-36.4) SEC Sodium 143 (135-145) mmol/L Potassium 3.9 (3.3-5.1) mmol/L Chloride 105 (96-108) mmol/L Carbon Dioxide 28 (22-29) mmol/L Anion Gap 14 (12-20) BUN 12 (9-16) mg/dL Creatinine 0.82 (0.5-1.4) mg/dL Estim Creat Clear Calc 79.4 Estimated GFR > 60 Random Glucose 150 H (60-115) mg/dL Calcium 9.8 D (8.4-10.2) mg/dL Magnesium 2.1 (1.6-2.6) mg/dL Total Bilirubin 1.0 (0.0-1.0) mg/dL AST 20 (5-37) U/L ALT 39 (0-40) U/L Alkaline Phosphatase 248 H (39-117) U/L Troponin I High Sens (<3.5-35.0) ng/L B-Natriuretic Peptide 211 H (<100) pg/mL Total Protein 8.0 (6.5-8.0) g/dL Albumin 4.5 (3.5-5.0) g/dL COVID-19 (MARYA) (Negative) COVID-19 Clin Com Influenza Type A (FORREST) (Negative) Influenza Type B (FORREST) (Negative) Influenza A & B Note 08/11/22 08/11/22 08/11/22 Range/Units 09:15 09:15 09:15 WBC (4.8-10.8) X10*3/uL RBC (4.60-5.80) X10*6/uL Hgb (14.0-18.0) g/dl Hct (42.0-52.0) % MCV (80.0-98.0) fL MCH (27.0-33.0) pg MCHC (31.0-36.0) g/dl RDW (11.0-16.0) % Plt Count (160-400) X10*3/uL MPV (9.4-12.4) fL Immature Gran % (Auto) (0.0-0.4) % Neut % (Auto) (45-73) % Lymph % (Auto) (20-40) % [place] % (Auto) (2-11) % Eos % (Auto) (0-4) % Baso % (Auto) (0-2) % Lymph # (Auto) (1.2-4.9) X10*3/uL [place] # (Auto) (0.1-1.2) X10*3/uL Eos # (Auto) (0.0-0.4) X10*3/uL Baso # (Auto) (0.0-0.2) X10*3/uL Abs Immat Gran (auto) (0.00-0.03) X10*3/uL Absolute Neuts (auto) (2.0-8.3) x10*3/uL Absolute Nucleated RBC (0.0-0.012) X10*3/uL Nucleated RBC % (auto) (0.0-0.2) /100WBC PT (10.0-13.1) SEC INR (0.9-1.1) APTT (26.0-36.4) SEC Sodium (135-145) mmol/L Potassium (3.3-5.1) mmol/L Chloride (96-108) mmol/L Carbon Dioxide (22-29) mmol/L Anion Gap (12-20) BUN (9-16) mg/dL Creatinine (0.5-1.4) mg/dL Estim Creat Clear Calc Estimated GFR Random Glucose (60-115) mg/dL Calcium (8.4-10.2) mg/dL Magnesium (1.6-2.6) mg/dL Total Bilirubin (0.0-1.0) mg/dL AST (5-37) U/L ALT (0-40) U/L Alkaline Phosphatase (39-117) U/L Troponin I High Sens 4.4 (<3.5-35.0) ng/L B-Natriuretic Peptide (<100) pg/mL Total Protein (6.5-8.0) g/dL Albumin (3.5-5.0) g/dL COVID-19 (MARYA) Negative (Negative) COVID-19 Clin Com See Note Influenza Type A (FORREST) Negative (Negative) Influenza Type B (FORREST) Negative (Negative) Influenza A & B Note See Note 08/11/22 Range/Units 10:39 WBC (4.8-10.8) X10*3/uL RBC (4.60-5.80) X10*6/uL Hgb (14.0-18.0) g/dl Hct (42.0-52.0) % MCV (80.0-98.0) fL MCH (27.0-33.0) pg MCHC (31.0-36.0) g/dl RDW (11.0-16.0) % Plt Count (160-400) X10*3/uL MPV (9.4-12.4) fL Immature Gran % (Auto) (0.0-0.4) % Neut % (Auto) (45-73) % Lymph % (Auto) (20-40) % [place] % (Auto) (2-11) % Eos % (Auto) (0-4) % Baso % (Auto) (0-2) % Lymph # (Auto) (1.2-4.9) X10*3/uL [place] # (Auto) (0.1-1.2) X10*3/uL Eos # (Auto) (0.0-0.4) X10*3/uL Baso # (Auto) (0.0-0.2) X10*3/uL Abs Immat Gran (auto) (0.00-0.03) X10*3/uL Absolute Neuts (auto) (2.0-8.3) x10*3/uL Absolute Nucleated RBC (0.0-0.012) X10*3/uL Nucleated RBC % (auto) (0.0-0.2) /100WBC PT 16.3 H (10.0-13.1) SEC INR 1.4 H (0.9-1.1) APTT 33.8 (26.0-36.4) SEC Sodium (135-145) mmol/L Potassium (3.3-5.1) mmol/L Chloride (96-108) mmol/L Carbon Dioxide (22-29) mmol/L Anion Gap (12-20) BUN (9-16) mg/dL Creatinine (0.5-1.4) mg/dL Estim Creat Clear Calc Estimated GFR Random Glucose (60-115) mg/dL Calcium (8.4-10.2) mg/dL Magnesium (1.6-2.6) mg/dL Total Bilirubin (0.0-1.0) mg/dL AST (5-37) U/L ALT (0-40) U/L Alkaline Phosphatase (39-117) U/L Troponin I High Sens (<3.5-35.0) ng/L B-Natriuretic Peptide (<100) pg/mL Total Protein (6.5-8.0) g/dL Albumin (3.5-5.0) g/dL COVID-19 (MARYA) (Negative) COVID-19 Clin Com Influenza Type A (FORREST) (Negative) Influenza Type B (FORREST) (Negative) Influenza A & B Note Independent Interpretation I performed an independent interpretation of an: EKG Interpretation: EXAMINATION: XR CHEST CLINICAL INFORMATION: Dyspnea. COMPARISON: None TECHNIQUE: Frontal view of the chest was obtained. FINDINGS: Mild scattered patchy infiltrates are seen bilaterally. A definitive pleural effusion is not seen. The heart and mediastinal structures are unremarkable. XR/XR chest 1V IMPRESSION: Mild scattered bilateral patchy infiltrates are nonspecific, but suggest an infectious/inflammatory process. Dictated By: KRUNAL JUNE MD Signed By: Electronically signed by KRUNAL JUNE MD 03/01/20 0844 Vent. Rate: 078 BPM ? ? Atrial Rate: 000 BPM P-R Int: 000 ms? QRS Dur: 094 ms QT Int: 362 ms ? ? ? P-R-T Axes: 000 -27 024 degrees QTc Int: 412 ms ? Atrial fibrillation Inferior infarct (cited on or before 11-AUG-2022) Abnormal ECG When compared with ECG of 11-AUG-2022 08:57, Vent. rate has decreased BY? 49 BPM Nonspecific T wave abnormality no longer evident in Lateral leads DD/ 1102 Radiology Impression Radiologist Impression: My interpretation is in agreement with the radiologist's impression of this imaging study. EXAMINATION: XR CHEST CLINICAL INFORMATION: Cough COMPARISON: Chest x-ray 03/01/2020 TECHNIQUE: 2 views of the chest were obtained. FINDINGS: Cardiac silhouette is normal in size. The lungs are adequately aerated. Subtle bibasilar opacities suggesting atelectasis. No lobar consolidation. No pleural effusion or pneumothorax. Degenerative changes of the spine. XR/XR chest 2V IMPRESSION: Suspected bibasilar atelectasis. No lobar consolidation. Dictated By: Troy Novoa MD Signed By: Electronically signed by Troy Novoa MD 08/11/22 1033 Independent Historian Clinical information obtained from an independent historian. History obtained from or confirmed by: Spouse (patient's ) Critical Care Time Critical Care Time Critical Care Time: Yes Total Critical Care Time: 30 Attestation: I spent 30 minutes of Critical Care Time with this patient. This does not include time spent on separately reported billable procedures. Discharge Plan Discharge Clinical Impression: Atrial fibrillation Patient Disposition: Home, Self-Care Instructions: A-fib (Atrial Fibrillation) (DC) Additional Instructions: Follow up with your primary care provider and your specimen collector. Keep taking your medication as prescribed. Return to the emergency department immediately if your symptoms worsen or if you develop any dizziness, shortness of breath, difficulty breathing, chest pain, blurry vision, loss of vision, nausea, vomiting, abdominal pain, fever, chills, back pain, or any other complaints. Prokonsul'tiruytes' so svoim lechashchim vrachom i kardiologom. Prodolzhayte prinimat' lekarstva v sootvetstvii s predpisaniyami. Nemedlenno obratites' v otdeleniye neotlozhnoy pomoshchi, yesli vashi simptomy ukhudshatsya mateo yesli u vas poyavyatsya golovokruzheniye, odyshka, zatrudnennoye dykhaniye, bere' v grudi, nechetkost' zreniya, poterya zreniya, maria eota, rvota, bere' v zhivote, bao, faithb, bere' v spine mateo lyubyye davida simptomy. davida santiago. Prescriptions: No Action atorvastatin 80 mg tablet 80 mg PO DAILY metoprolol succinate 50 mg tablet extended release 24 hr 50 mg PO DAILY clopidogrel 75 mg tablet 75 mg PO DAILY diltiazem HCl [DILT-XR] 120 mg capsule,ext.rel 24h degradable 120 mg PO DAILY Eliquis 5 mg tablet 5 mg PO BID Referrals: Brendon Jesus NP [Primary Care Provider] - Interventions: ED Discharge Assessment Last Done: 08/11/22 11:58 Discharge Date/Time: 08/11/22 12:00
[2022-08-11 09:21] LABS: MANUAL DIFF FLAG NO
[2022-08-11 09:30] LABS: Basophils Percent Auto 0.4 % (0-2); Eosinophils Absolute Auto 0.1 X10*3/uL (0.0-0.4); Eosinophils Percent Auto 0.9 % (0-4); Hematocrit 46.8 % (42.0-52.0); Imm Gran Abs Auto 0.04 X10*3/uL (0.00-0.03); Imm Gran Pct Auto 0.5 % (0.0-0.4); Lymphocytes Absolute Auto 1.3 X10*3/uL (1.2-4.9); Lymphocytes Percent Auto 15.7 % (20-40); Mean Corpuscular HGB Conc 34.2 g/dl (31.0-36.0); Mean Corpuscular Volume 87.6 fL (80.0-98.0); Mean Platelet Volume 9.3 fL (9.4-12.4); Monocytes Absolute Auto 0.7 X10*3/uL (0.1-1.2); Monocytes Percent Auto 8.9 % (2-11); Neutrophils Absolute Auto 5.9 x10*3/uL (2.0-8.3); Neutrophils Percent Auto 73.6 % (45-73); Platelet Count 217 X10*3/uL (160-400); Red Blood Count 5.34 X10*6/uL (4.60-5.80); Red Cell Distribution Width 13.2 % (11.0-16.0)
[2022-08-11 09:35] LABS: COVID-19 Test Negative (Negative); IDNOW Serial# 08D9AD1C
[2022-08-11 09:36] LABS: IDNOW Serial# BCCEAD1C; Influenza A Negative (Negative); Influenza B2 Negative (Negative)
[2022-08-11 09:42] LABS: Alanine Aminotransferase 39 U/L (0-40); Albumin Level 4.5 g/dL (3.5-5.0); Alkaline Phosphatase 248 U/L (39-117); Anion Gap 14 (12-20); Aspartate Amino Transferase 20 U/L (5-37); Blood Urea Nitrogen 12 mg/dL (9-16); Calcium 9.8 mg/dL (8.4-10.2); Carbon Dioxide 28 mmol/L (22-29); Chloride 105 mmol/L (96-108); Creatinine Clr Calc Pharmacy 79.4; Estimated Glomerular Filt Rate > 60; Glucose Random 150 mg/dL (60-115); Magnesium 2.1 mg/dL (1.6-2.6); Potassium 3.9 mmol/L (3.3-5.1); Sodium 143 mmol/L (135-145)
[2022-08-11 09:48] LABS: B Type Natriuretic Peptide 211 pg/mL (<100)
[2022-08-11 09:50] LABS: Troponin-I High Sensitivity 4.4 ng/L (<3.5-35.0)
[2022-08-11] MEDS: 0.9 % Sodium Chloride 1,000 ML 999 ML IV (09:57)
--- NOTE | 2022-08-11 09:57 | PHA.MEDREC ---
Pharmacy Consult ? Medication Reconciliation Pharmacy has completed the medication reconciliation. Patient had bag of meds. no longer on aspirin or norvasc. said provider stopped it Jalen
--- NOTE | 2022-08-11 10:04 | PC.NURSE ---
Patient presents with a week of coughing and not feeling very well. Patient has also had some trouble sleeping and decreased appetite during this time. Patient noted to be in AFIB with RVR in triage. When patient on monitor it is noted that his heart rate is in the 120's in an AFIB rhythm. Lung sounds clear upon ausciltation.
[2022-08-11 10:29] VITALS: BP 134/71; PULSE 95
[2022-08-11] MEDS: dilTIAZem HCL 60 MG TABLET 120 MG PO (10:29)
--- NOTE | 2022-08-11 10:34 | ECG_ITS ---
Test Reason : REPEAT WEAKNESS Blood Pressure : / mmHG Vent. Rate : 078 BPM Atrial Rate : 000 BPM P-R Int : 000 ms QRS Dur : 094 ms QT Int : 362 ms P-R-T Axes : 000 -27 024 degrees QTc Int : 412 ms Atrial fibrillation Inferior infarct (cited on or before 11-AUG-2022) Abnormal ECG When compared with ECG of 11-AUG-2022 08:57, Vent. rate has decreased BY 49 BPM Nonspecific T wave abnormality no longer evident in Lateral leads Referred By: Rosalinda Rosario Electronically Signed By:LAURA HOLLINGSWORTH MD
[2022-08-11 10:49] LABS: INTERNATIONAL NORM RATIO 1.4 (0.9-1.1); Prothrombin Time 16.3 SEC (10.0-13.1)
[2022-08-11 10:51] LABS: Partial Thromboplastin Time 33.8 SEC (26.0-36.4)
[2022-08-11 11:57] VITALS: BP 117/75; PULSE 77; RESP 22; TEMP 36.6; O2SAT 95
== END 2022-08-11 12:00 | disposition home or self-care (01) ==
PROVIDERS: Physician Assistant Medical; Emergency Provider Emergency Medicine; PCP Nurse Practitioner Family
DX: R05.9 Cough, unspecified (principal); I48.91 Unspecified atrial fibrillation; R06.02 Shortness of breath; Z20.822 Contact with and (suspected) exposure to COVID-19; Z20.828 Contact with and (suspected) exposure to other viral communicable diseases; Z79.899 Other long term (current) drug therapy
CPT/HCPCS: 36415; 71046; 80053; 83735; 83880; 84484; 85025; 85610; 85730; 87502; 87635; 93005; 99284

== ENCOUNTER 2023-02-24 10:24 | Outpatient (REF) | payer MEDICARE, SELFPAY ==
[2023-02-24 13:05] LABS: MANUAL DIFF FLAG NO
[2023-02-24 13:18] LABS: Basophils Absolute Auto 0.1 X10*3/uL (0.0-0.2); Basophils Percent Auto 0.8 % (0-2); Eosinophils Absolute Auto 0.1 X10*3/uL (0.0-0.4); Eosinophils Percent Auto 1.6 % (0-4); Hematocrit 46.1 % (42.0-52.0); Hemoglobin 15.3 g/dl (14.0-18.0); Imm Gran Abs Auto 0.03 X10*3/uL (0.00-0.03); Imm Gran Pct Auto 0.5 % (0.0-0.4); Lymphocytes Absolute Auto 1.5 X10*3/uL (1.2-4.9); Lymphocytes Percent Auto 24.1 % (20-40); Mean Corpuscular HGB Conc 33.2 g/dl (31.0-36.0); Mean Corpuscular Volume 90.4 fL (80.0-98.0); Mean Platelet Volume 9.6 fL (9.4-12.4); Monocytes Absolute Auto 0.5 X10*3/uL (0.1-1.2); Monocytes Percent Auto 7.5 % (2-11); Neutrophils Percent Auto 65.5 % (45-73); Platelet Count 214 X10*3/uL (160-400); Red Cell Distribution Width 14.4 % (11.0-16.0); White Blood Count 6.2 X10*3/uL (4.8-10.8)
[2023-02-24 13:46] LABS: Prostate Specific Antigen Scr 1.14 ng/mL (<0.05-4.0)
[2023-02-24 14:18] LABS: Alanine Aminotransferase 6 U/L (0-40); Albumin Level 4.3 g/dL (3.5-5.0); Alkaline Phosphatase 119 U/L (39-117); Anion Gap 11 (12-20); Aspartate Amino Transferase 21 U/L (5-37); Bilirubin Total 0.7 mg/dL (0.0-1.0); Blood Urea Nitrogen 10 mg/dL (9-16); Calcium 9.5 mg/dL (8.4-10.2); Carbon Dioxide 29 mmol/L (22-29); Chloride 105 mmol/L (96-108); Cholesterol 160 mg/dL (<200); Estimated Glomerular Filt Rate > 60; Glucose Random 101 mg/dL (60-115); HDL Cholesterol 39 mg/dL (>40); LDL Cholesterol Calculated 102 mg/dL (<100); Potassium 4.5 mmol/L (3.3-5.1); Sodium 140 mmol/L (135-145); Total Protein 7.4 g/dL (6.5-8.0); Triglycerides 98 mg/dL (<150)
== END 2023-02-24 10:25 | disposition home or self-care (01) ==
LOC: HO.10HDL 10:24
PROVIDERS: Visit Provider Internal Medicine
DX: Z00.00 Encounter for general adult medical examination without abnormal findings (principal); E78.00 Pure hypercholesterolemia, unspecified; I10 Essential (primary) hypertension; I48.0 Paroxysmal atrial fibrillation; N40.0 Benign prostatic hyperplasia without lower urinary tract symptoms; Z95.818 Presence of other cardiac implants and grafts; Z12.5 Encounter for screening for malignant neoplasm of prostate
CPT/HCPCS: 36415; 80053; 80061; 84153; 84443; 85025

== ENCOUNTER 2024-07-08 11:21 | Outpatient (REF) | payer MEDICARE, SELFPAY ==
[2024-07-08 13:12] LABS: MANUAL DIFF FLAG NO
[2024-07-08 13:20] LABS: Basophils Percent Auto 0.4 % (0-2); Eosinophils Absolute Auto 0.1 X10*3/uL (0.0-0.4); Eosinophils Percent Auto 1.6 % (0-4); Hematocrit 43.7 % (42.0-52.0); Hemoglobin 14.5 g/dl (14.0-18.0); Imm Gran Abs Auto 0.04 X10*3/uL (0.00-0.03); Imm Gran Pct Auto 0.5 % (0.0-0.4); Lymphocytes Absolute Auto 1.5 X10*3/uL (1.2-4.9); Lymphocytes Percent Auto 19.7 % (20-40); Mean Corpuscular HGB Conc 33.2 g/dl (31.0-36.0); Mean Corpuscular Hemoglobin 29.9 pg (27.0-33.0); Mean Corpuscular Volume 90.1 fL (80.0-98.0); Mean Platelet Volume 9.5 fL (9.4-12.4); Monocytes Absolute Auto 0.7 X10*3/uL (0.1-1.2); Monocytes Percent Auto 9.7 % (2-11); Neutrophils Absolute Auto 5.2 x10*3/uL (2.0-8.3); Neutrophils Percent Auto 68.1 % (45-73); Platelet Count 223 X10*3/uL (160-400); Red Blood Count 4.85 X10*6/uL (4.60-5.80); Red Cell Distribution Width 13.8 % (11.0-16.0); White Blood Count 7.7 X10*3/uL (4.8-10.8)
[2024-07-08 14:26] LABS: Alanine Aminotransferase 13 U/L (0-40); Albumin Level 4.1 g/dL (3.5-5.0); Anion Gap 10 (12-20); Aspartate Amino Transferase 15 U/L (5-37); Bilirubin Total 0.7 mg/dL (0.0-1.0); Blood Urea Nitrogen 16 mg/dL (9-16); Calcium 9.4 mg/dL (8.4-10.2); Carbon Dioxide 26 mmol/L (22-29); Chloride 111 mmol/L (96-108); Cholesterol 192 mg/dL (<200); Estimated Glomerular Filt Rate > 60; Glucose Random 107 mg/dL (60-115); HDL Cholesterol 31 mg/dL (>40); LDL Cholesterol Calculated 112 mg/dL (<100); Potassium 4.3 mmol/L (3.3-5.1); Sodium 143 mmol/L (135-145); Total Protein 7.2 g/dL (6.5-8.0); Triglycerides 248 mg/dL (<150)
[2024-07-08 14:41] LABS: Alkaline Phosphatase 119 U/L (39-117)
== END 2024-07-08 11:22 | disposition home or self-care (01) ==
LOC: HO.10HDL 11:21
PROVIDERS: Visit Provider Internal Medicine
DX: E78.00 Pure hypercholesterolemia, unspecified (principal); I10 Essential (primary) hypertension; I25.10 Atherosclerotic heart disease of native coronary artery without angina pectoris; I48.91 Unspecified atrial fibrillation
CPT/HCPCS: 36415; 80053; 80061; 85025

== ENCOUNTER 2025-01-26 08:55 | Outpatient (REF) | payer MEDICARE, SELFPAY ==
[2025-01-26 09:47] LABS: MANUAL DIFF FLAG NO
[2025-01-26 09:50] LABS: Hematocrit 46.3 % (42.0-52.0); Hemoglobin 15.3 g/dl (14.0-18.0); Imm Gran Abs Auto 0.04 X10*3/uL (0.00-0.03); Imm Gran Pct Auto 0.5 % (0.0-0.4); Lymphocytes Absolute Auto 1.7 X10*3/uL (1.2-4.9); Mean Corpuscular HGB Conc 33.0 g/dl (31.0-36.0); Mean Corpuscular Hemoglobin 29.4 pg (27.0-33.0); Mean Corpuscular Volume 88.9 fL (80.0-98.0); NRBC Abs Auto 0.000 X10*3/uL (0.0-0.012); NRBC Pct Auto 0.0 /100WBC (0.0-0.2); Platelet Count 205 X10*3/uL (160-400); Red Blood Count 5.21 X10*6/uL (4.60-5.80); White Blood Count 7.7 X10*3/uL (4.8-10.8)
[2025-01-26 10:22] LABS: Alanine Aminotransferase 18 U/L (0-40); Albumin Level 4.4 g/dL (3.5-5.0); Alkaline Phosphatase 141 U/L (39-117); Anion Gap 10 (12-20); Aspartate Amino Transferase 21 U/L (5-37); Blood Urea Nitrogen 13 mg/dL (9-16); Calcium 9.4 mg/dL (8.4-10.2); Carbon Dioxide 28 mmol/L (22-29); Chloride 109 mmol/L (96-108); Cholesterol 144 mg/dL (<200); Estimated Glomerular Filt Rate > 60; HDL Cholesterol 35 mg/dL (>40); Potassium 5.1 mmol/L (3.3-5.1); Sodium 142 mmol/L (135-145); Total Protein 7.4 g/dL (6.5-8.0); Triglycerides 105 mg/dL (<150)
== END 2025-01-26 08:56 | disposition home or self-care (01) ==
LOC: HO.10HDL 08:55
PROVIDERS: Visit Provider Internal Medicine
DX: E78.00 Pure hypercholesterolemia, unspecified (principal); I25.10 Atherosclerotic heart disease of native coronary artery without angina pectoris; I48.91 Unspecified atrial fibrillation; Z79.01 Long term (current) use of anticoagulants
CPT/HCPCS: 36415; 80053; 80061; 85025